=== PATIENT | female | born 1975 | race Caucasian/White ===

== ENCOUNTER 2018-01-30 09:28 | Emergency (ER) | payer MEDICAID ==
[~2018-01-30] VITALS: Ht 170.2 cm; Wt 70.3 kg
[2018-01-30] MEDS ORDERED: AMPH20CA3 PO (09:37)
[2018-01-30] MEDS ORDERED: diphenhydrAMINE 50 MG/1 ML VIAL IM ONE ×2 (09:45→14:00)
[2018-01-30] MEDS ORDERED: OLANZAPINE 10 MG VIAL IM ONE ×4 (09:45→14:07)
[2018-01-30] MEDS ORDERED: diphenhydrAMINE 50 MG/1 ML VIAL ONE ×2 (09:53→14:07)
--- NOTE | 2018-01-30 10:00 | NUR ---
Lapd removed their hand cuffs and left. Pt placed in two point restrains (bilat wrist, velcro) with assistance of security per Dr.Sauer lutz for patient safety.
[2018-01-30 10:10] LABS: BASOPHILS # (AUTO) 0.1 K/uL (0.0-8.0); BASOPHILS % (AUTO) 1.1 % (0.0-2.0); EOSINOPHILS # (AUTO) 0.1 K/uL (0.0-0.7); EOSINOPHILS % (AUTO) 1.3 % (0.0-7.0); HEMATOCRIT 40.7 % (31.2-41.9); LYMPHOCYTES # (AUTO) 1.7 K/uL (20.0-40.0); MEAN CORPUSCULAR HEMOGLOBIN 30.3 uug (24.7-32.8); MEAN CORPUSCULAR HGB CONC 35 g/dL (32.3-35.6); MEAN CORPUSCULAR VOLUME 87.8 fL (75.5-95.3); MONOCYTES # (AUTO) 0.5 K/uL (2.0-10.0); MONOCYTES % (AUTO) 10.4 % (0.0-11.0); NEUTROPHILS # (AUTO) 2.8 K/uL (1.8-8.9); NEUTROPHILS % (AUTO) 54.2 % (38.5-71.5); PLATELET COUNT (AUTO) 306 K/uL (179-408); RED BLOOD CELL COUNT(AUTO) 4.63 MIL/uL (3.63-4.92); WHITE BLOOD COUNT (AUTO) 5.2 K/uL (3.8-11.8)
[2018-01-30 10:16] LABS: CARBON DIOXIDE 23 mmol/L (21-32); CHLORIDE 101 mmol/L (98-107); CREATININE 0.7 mg/dL (0.6-1.3); ETHANOL < 3 MG/DL (0-0); GLUCOSE 91 mg/dL (74-106); POTASSIUM 2.9 mmol/L (3.5-5.1); UREA NITROGEN, BLOOD 16 mg/dL (7-18)
[2018-01-30 10:22] LABS: ALANINE AMINOTRANSFERASE 36 U/L (14-59); ALKALINE PHOSPHATASE 75 U/L (50-136); ASPARTATE AMINOTRANSFERASE 15 U/L (15-37); BILIRUBIN,DIRECT 0.2 mg/dL (0.0-0.2); CREATINE KINASE, TOTAL 58 U/L (26-192); TOTAL PROTEIN, SERUM 7.8 g/dL (6.4-8.2)
[2018-01-30 10:23] LABS: ACETAMINOPHEN < 2.0 ug/mL (10-30)
--- NOTE | 2018-01-30 10:31 | NUR ---
Restraines removed, pt is sleeping quietly and on continues heart/pulse ox monitoring. NAD noted.
[2018-01-30] MEDS ORDERED: MORPHINE SULFATE 4 MG/1 ML DISP.SYRIN IV ONE (10:45)
[2018-01-30] MEDS ORDERED: IOHEXOL 300MG/ML 100 ML INFUS..BTL ONE (10:53)
[2018-01-30] MEDS ORDERED: SWABABLE VALVE TRANSFER SET EA MC ONE (10:53)
[2018-01-30] MEDS ORDERED: IV NORMAL SALINE 0 ML ONE (10:53)
--- NOTE | 2018-01-30 11:31 | NUR ---
Patient is resting comfortably in bed with eyes closed, NAD noted.
[2018-01-30] MEDS ORDERED: POTASSIUM BICARBONATE/CIT AC 25 MEQ TABLET.EFF PO ONE (12:00)
[2018-01-30] MEDS ORDERED: POTASSIUM BICARBONATE/CIT AC 25 MEQ TABLET.EFF ONE (12:09)
--- NOTE | 2018-01-30 12:30 | NUR ---
Pt is awake and cooperative and pleasent at this time. Pt requested food and water, provided.
[2018-01-30] MEDS ORDERED: TDAP DIPH,PERTUSS,TET VAC/PF 0.5 ML DISP.SYRIN IM ONE (13:44)
--- NOTE | 2018-01-30 13:55 | NUR ---
Pt becomes aggitated and start to scream and becomes uncooperative w/ care.
--- NOTE | 2018-01-30 14:00 | NUR ---
Per Dr request arnold cassidy was called since pt try to leave ER.
--- NOTE | 2018-01-30 14:03 | NUR ---
Pt placed on 2 point velcro wrist restrains.
--- NOTE | 2018-01-30 14:10 | NUR ---
Removed restraines pt is sleeping comfortably w/ both eyes closed.
--- NOTE | 2018-01-30 15:33 | NUR ---
Reji Jenkins from PET at the bedsided for Psych eval. 1 to 1 sitter at the bedside.
--- NOTE | 2018-01-30 15:56 | NUR ---
pt is awake and walking w/ steady gait.
--- NOTE | 2018-01-30 16:08 | NUR ---
Patient discharged in stable conditon. Written and verbal after care instructions given. Patient verbalizes understanding of instructions. Pt left Er w/ steady gait.
[2018-01-30 16:09] VITALS: BP 118/68
== END 2018-01-30 16:10 | disposition home or self-care (01) ==
LOC: ER 09:28
DX: F15.159 Other stimulant abuse with stimulant-induced psychotic disorder, unspecified (principal); F19.10 Other psychoactive substance abuse, uncomplicated; Z79.899 Other long term (current) drug therapy
CPT/HCPCS: 36415; 80048; 80076; 82550; 84703; 85025; 96372 ×4; 99284; A4663; G0480 ×2; G0481; J1200 ×2; J2358 ×2; 90715; J3490; Q9967